=== PATIENT | male | born 1960 | race Caucasian/White ===

== ENCOUNTER 2017-07-19 06:02 | Emergency (ER) | payer BC ==
--- NOTE | 2017-07-19 06:27 | EDM.PDOC ---
<Jessie Morgan - Last Filed: 07/19/17 07:00> ED HPI GENERAL MEDICAL PROBLEM - General Stated Complaint: LEFT SIDE OF BODY IS NUMB [id number] Time Seen by Provider: 07/19/17 06:12 Source of Information: Reports: Patient History Limitations: Reports: No Limitations - History of Present Illness INITIAL COMMENTS - FREE TEXT/NARRATIVE: C/O waking at 430 this am with numbness and weakness to left side of body. Went to bed at 830pm. Denies medical history or routine medical care. Smoker 1 pack per day. Onset: Today, Sudden Location: Reports: Upper Extremity, Left, Lower Extremity, Left - Related Data Allergies Allergy/AdvReac Type Severity Reaction Status Date / Time No Known Allergies Allergy Verified 07/19/17 06:14 Home Meds: Home Meds . [No Known Home Meds] 07/19/17 [History] ED ROS GENERAL - Review of Systems Review Of Systems: See Below Constitutional: Reports: Weakness HEENT: Reports: Hearing Loss Respiratory: Reports: No Symptoms Cardiovascular: Reports: No Symptoms GI/Abdominal: Reports: No Symptoms Musculoskeletal: Reports: No Symptoms Skin: Reports: No Symptoms Neurological: Reports: Numbness (left side of body), Tingling, Difficulty Walking, Weakness. Denies: Dizziness, Headache, Pre-Existing Deficit, Trouble Speaking, Change in Speech ED EXAM, NEURO - Physical Exam Exam: See Below Exam Limited By: No Limitations General Appearance: Alert, Anxious, Mild Distress Eye Exam: Bilateral Eye: EOMI, Normal Fundi, PERRL Ears: Hearing Loss Nose: Normal Inspection Throat/Mouth: Normal Inspection Head Exam: Atraumatic, Normocephalic Neck: Normal Inspection Respiratory/Chest: No Respiratory Distress, Lungs Clear, Normal Breath Sounds Cardiovascular: Normal Peripheral Pulses, Regular Rate, Rhythm, No Edema GI/Abdominal: Soft Neurological: Alert, Normal Mood/Affect, Oriented x 3. No: Normal Plantar Flexion (weaker on left), Abnormal Finger to Nose, Abnormal Sensation Back Exam: Full Range of Motion Extremities: Normal Inspection Skin Exam: Warm, Dry, Intact, Normal Color, No Rash Course - Vital Signs Last Recorded V/S: Last Vital Signs Temp 96.7 F 07/19/17 06:05 Pulse 76 07/19/17 06:05 Resp 18 07/19/17 06:05 BP 184/97 H 07/19/17 06:05 Pulse Ox 98 07/19/17 06:05 - Orders/Labs/Meds Orders: Active Orders 24 hr Category Date Time Status EKG Documentation Completion [RC] URGENT Care 07/19/17 06:10 Active UA W/MICROSCOPIC [URIN] Stat Lab 07/19/17 06:10 Uncollected Labs: Laboratory Tests 07/19/17 07/19/17 07/19/17 Range/Units 06:19 06:19 06:19 WBC 7.4 (5.0-10.0) 10^3/uL RBC 4.61 (4.6-6.2) 10^6/uL Hgb 14.0 (14.0-18.0) g/dL Hct 40.7 (40.0-54.0) % MCV 88.3 (80-100) fL MCH 30.4 (27.0-34.0) pg MCHC 34.4 (33.0-35.0) g/dL Plt Count 235 (150-450) 10^3/uL Neut % (Auto) 67.0 (42.2-75.2) % Lymph % (Auto) 20.0 L (20.5-50.1) % Chase % (Auto) 9.3 H (2-8) % Eos % (Auto) 3.0 (1.0-3.0) % Baso % (Auto) 0.7 (0.0-1.0) % PT 9.0 (9.0-12.0) SEC INR 0.9 (0.9-1.2) Sodium 139 (135-145) mmol/L Potassium 3.8 (3.6-5.0) mmol/L Chloride 103 (101-111) mmol/L Carbon Dioxide 25.0 (21.0-31.0) mmol/L Anion Gap 14.8 BUN 15 (7-18) mg/dL Creatinine 1.0 (0.6-1.3) mg/dL Est Cr Clr Drug Dosing 78.03 mL/min Estimated GFR (MDRD) > 60 BUN/Creatinine Ratio 15.00 Glucose 102 (74-105) mg/dL Calcium 9.1 (8.4-10.2) mg/dl Total Bilirubin 0.5 (0.2-1.0) mg/dL AST 29 (10-42) IU/L ALT 36 (10-60) IU/L Alkaline Phosphatase 75 (42-121) IU/L Total Protein 7.5 (6.7-8.2) g/dl Albumin 4.1 (3.2-5.5) g/dl Globulin 3.4 Albumin/Globulin Ratio 1.21 - Radiology Interpretation Free Text/Narrative:: CT: Head no acute changes, 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 Sanfor Dr Alexander noted no intervention for patient. Patient prefers transfer to [facility] closer to home. accepting of patient in transfer. Pat. stable, status unchanged since arrival. Symptoms have remained same. Transfer of care to [facility] while awaiting transfer. Departure - Departure Disposition: DC/Tfer to Acute Hospital 02 Condition: Undetermined Clinical Impression: Stroke Qualifiers: CVA mechanism: unspecified Qualified Code(s): I63.9 - Cerebral infarction, unspecified - Discharge Information Referrals: PCP,Not In Area [Primary Care Provider] - Forms: ED Department Discharge <Mackenzie Figueroa - Last Filed: 07/19/17 09:42> Departure - Departure Time of Disposition: 07:30
[2017-07-19 06:48] LABS: CHLORIDE,CL 103 mmol/L (101-111); SODIUM,NA 139 mmol/L (135-145)
--- NOTE | 2017-07-21 10:21 | EKG ---
07/19/2017 - PETER CORTÉS - TIME: 06:11 a.m. FINDINGS: EKG shows normal sinus rhythm. No ST-segment changes. [facility] /[id number]
== END 2017-07-19 07:43 ==
LOC: DL.ED 06:02
DX: I63.9 Cerebral infarction, unspecified (principal)
CPT/HCPCS: 36415; 70450; 80053; 85025; 85610; 93005; 99285